=== PATIENT | female | born 1995 | race Caucasian/White ===

== ENCOUNTER 2019-01-13 12:34 | Day surgery (SDC) | payer BC ==
[~2019-01-13 12:34] MED LIST: Lactated Ringers 1,000 ML IV SCH; Midazolam 1 MG/ML 2 ML SDV ONE; Propofol 200 MG/20 ML SDV ONE; Sodium Chloride 0.9% 10 ML Syringe FLUSH PRN
[2019-01-13] MEDS ORDERED: Propofol 200 MG/20 ML SDV ONE (13:13)
[2019-01-13] MEDS ORDERED: Propofol 200 MG/20 ML SDV IV ONE (13:50)
[2019-01-13] MEDS ORDERED: Midazolam 1 MG/ML 2 ML SDV IV ONE (13:50)
--- NOTE | 2019-01-13 13:57 | PCM.PN ---
- General Info Date of Service: 01/13/19 - Review of Systems Systems Review Comment:: 23-year-old female referred for colonoscopy. This patient has a several year history of unexplained diarrhea. It has not responded to changes in diet or antidiarrheal medication. I have discussed the proposed colonoscopy with the patient. Risks such as but not limited to bleeding and GI injury reviewed. She appears to understand and agrees to proceed. Her recent history and physical is reviewed and no significant changes are noted. - Patient Data Vitals - Most Recent: Last Vital Signs Temp 99.0 F 01/13/19 12:30 Pulse 74 01/13/19 12:30 Resp 16 01/13/19 12:30 BP 151/76 H 01/13/19 12:30 Pulse Ox 100 01/13/19 12:30 Weight - Most Recent: 71.214 kg Med Orders - Current: Current Medications Lactated Ringer's (Ringers, Lactated) 1,000 mls @ 50 mls/hr IV ASDIRECTED VERN Last Admin: 01/13/19 13:50 Dose: 50 mls/hr Sodium Chloride (Saline Flush) 10 ml FLUSH Q8HR PRN PRN Reason: keep vein open Discontinued Medications Midazolam HCl (Versed 1 Mg/Ml) Confirm Administered Dose 4 mg .ROUTE .STK-MED ONE Stop: 01/13/19 12:24 Propofol (Diprivan 20 Ml) Confirm Administered Dose 400 mg .ROUTE .STK-MED ONE Stop: 01/13/19 12:24 - Problem List Review Problem List Initiated/Reviewed/Updated: Yes - My Orders Last 24 Hours: My Active Orders 01/13/19 12:30 Peripheral IV Care [RC] . DIRECTED Vital Signs [RC] PER UNIT ROUTINE HCG QUALITATIVE,URINE [URCHEM] Routine Lactated Ringers [Ringers, Lactated] 1,000 ml IV ASDIRECTED Sodium Chloride 0.9% [Saline Flush] 10 ml FLUSH Q8HR PRN Peripheral IV Insertion Adult [OM.PC] Routine 01/13/19 13:00 Patient to Empty Bladder [RC] ASDIRECTED 01/13/19 13:30 HCG QUALITATIVE,SERUM [CHEM] Stat 01/13/19 13:45 Verify Patient Consent Obtain [RC] ASDIRECTED 01/13/19 Breakfast Nothing Per Oral Diet [DIET] - Assessment Assessment:: Diarrhea - Plan Plan:: Colonoscopy
--- NOTE | 2019-01-13 14:32 | PCM.OPNOTE ---
- General Post-Op/Procedure Note Date of Surgery/Procedure: 01/13/19 Operative Procedure(s): Colonoscopy with Biopsy Findings: Normal appearing colon and terminal ileum Pre Op Diagnosis: Diarrhea Post-Op Diagnosis: Same Anesthesia Technique: MAC Primary Surgeon: Lang Martínez Pathology: Biopsies of terminal ileum and colon EBL in mLs: 3 Complications: None Condition: Good
--- NOTE | 2019-01-13 15:16 | OR ---
DATE OF SURGERY: 01/13/2019 SURGEON: Lang Martínez MD PREOPERATIVE DIAGNOSIS: Diarrhea. POSTOPERATIVE DIAGNOSIS: Diarrhea with normal colon. OPERATION PERFORMED: Colonoscopy with biopsy. INDICATIONS FOR SURGERY: This 23-year-old female has a several year history of unexplained diarrhea. She was referred for diagnostic colonoscopy. FINDINGS: The patient's colon appeared normal. No visible signs of inflammation, exudate, or ulceration was seen. The patient's terminal ileum also appeared normal without any inflammation or indication of induration. DESCRIPTION OF PROCEDURE: The patient was taken to the operating room. She was given intravenous sedation, and with her in the left lateral decubitus position, digital rectal exam was performed showing no rectal masses. The Olympus colonoscope was inserted into the rectum. Retroflexed examination of the rectal canal was performed. The scope was then carefully advanced through the entire length of the colon until the cecum was reached. Cecal acquisition was confirmed by noting normal internal cecal anatomy including the appendiceal orifice and ileocecal valve. The ileocecal valve was cannulated and the terminal ileum was examined. Random biopsies of the terminal ileum were taken to rule out celiac disease. The scope was then withdrawn back into the cecum and slowly withdrawn, sequentially re-examining the colonic segments. During withdrawal of the scope, random biopsies were taken of the right and left colon to evaluate for microscopic colitis. After the examined had been completed, the scope was removed and the patient was taken from the operating room in satisfactory condition. ESTIMATED BLOOD LOSS: 3 mL. COMPLICATIONS: None. PROGNOSIS: Good. /[id number]/MODL
== END 2019-01-13 16:08 | disposition home or self-care (01) ==
LOC: KA.SDS 12:34
PROVIDERS: ATTEND Surgery
DX: R19.7 Diarrhea, unspecified (principal); K59.00 Constipation, unspecified; Z79.899 Other long term (current) drug therapy
CPT/HCPCS: 36415; 45380; 81025; J2250; J2704; J7120